=== PATIENT | male | born 2000 | race Two or more races ===

== ENCOUNTER 2025-03-09 10:42 | Outpatient (CLI) | payer MEDICAID, SELFPAY ==
--- NOTE | 2025-03-09 11:30 | ECG_ITS ---
APPROVED REPORT Exam: Resting ECG HR:103 bpm ECG Measurements Heart Rate 103 AXES NM 143 P 65 QRSd 101 QRS 95 QT 310 T -1 QTc 370 Conclusion SINUS TACHYCARDIA POSSIBLE RIGHT ATRIAL ENLARGEMENT [0.25mV P-WAVE] BORDERLINE RIGHT AXIS DEVIATION [QRS AXIS > 90] NONSPECIFIC T-WAVE ABNORMALITY ABNORMAL ECG UNCONFIRMED REPORT Electronically signed by : Walt Washington MD 03/11/2025 08:07:11
[2025-03-09 13:57] VITALS: BMI 41.2
[2025-03-09 14:06] LABS: Hematocrit 47.3 % (42.0-52.0); Hemoglobin 15.6 g/dL (14.1-18.0); Immature Granulocytes % 0.3 %; Mean Corpuscular HGB Conc 33.0 g/dL (31.8-35.4); Mean Corpuscular Hemoglobin 27.8 pg (27.0-31.2); Mean Corpuscular Volume 84.2 fl (80-94); Nucleated Red Blood Cells % 0 %; Platelet Count 221 K/mm3 (142-424); Red Blood Count 5.62 M/mm3 (4.60-6.20); Red Cell Distribution Width-SD 42.7 fL; White Blood Count 6.4 K/mm3 (4.8-10.8)
[2025-03-09 14:49] LABS: Anion Gap 12.8 mEq/L (5-15); Blood Urea Nitrogen 10 mg/dl (9-20); Calcium 9.4 mg/dl (8.4-10.2); Carbon Dioxide 29 mmol/L (22.0-30.0); Chloride 101 mmol/L (98-107); Creatinine Clearance Estimated 268 mL/min (50-200); Creatinine,Serum 0.90 mg/dl (0.66-1.25); Estimated Glomerular Filt Rate 104 ml/min (>60); GFR (African American) 125 ML/MIN (>60); Glucose 138 mg/dl (74-100); Potassium 3.8 mmoL/L (3.5-5.1); Sodium 139 mmol/L (136-145)
== END 2025-03-09 23:59 | disposition home or self-care (01) ==
LOC: PREOP 10:43
PROVIDERS: Nurse Anesthetist, Certified Registered; PCP Family Medicine; Visit Provider Dentist General Practice
DX: Z01.810 Encounter for preprocedural cardiovascular examination (principal); Z01.812 Encounter for preprocedural laboratory examination; R00.0 Tachycardia, unspecified; R94.31 Abnormal electrocardiogram [ECG] [EKG]
CPT/HCPCS: 80048; 85025; 93005

== ENCOUNTER 2025-03-10 08:31 | Day surgery (SDC) | payer MEDICAID, SELFPAY ==
[2025-03-09 14:00] VITALS: BMI 41.2
[2025-03-10] VITALS (9 sets, daily range): BP systolic 152–176; BP diastolic 88–111; PULSE 91–99; RESP 18–24; TEMP 36.3–36.6; O2SAT 93–99
--- NOTE | 2025-03-10 09:00 | EXP.ANES.CKL ---
[facility] Disclaimer: The information contained in this section may have been updated after the patient was seen, as this information can be updated by other users. Medical History Seizure Surgical History H/O myringotomy History of tonsillectomy and adenoidectomy Family History Other Family history of diabetes mellitus Social History Smoking Status: Former smoker alcohol intake: never substance use type: denies use current occupational status: disabled Travel in the last 8 weeks?: None [facility] Anesthesia Checklist Patient Identification Patient Identification: Arm Band and Family Structural Data Admitted From: Home Planned Operative Procedure/s: Dental cleaning. Consent for Planned Operative Procedure(s) Verified: Yes Verified Documents: Surgical Consent and History and Physical NPO Status Verified Time NPO: 00:00 Additional verifications Anesthesia Reactions: No Hx Blood Transfusions: No Blood Transfusion Reaction: No Cephalosporin Allergy: No Previous Colonoscopy: No Airway Assessment Mallampati Score:: Class III C-Spine Mobility Assessed: Yes TMJ Mobility Assessed: Yes Dentition: Good Dentition Neurological Assessment Level of Consciousness: Awake, Alert, Appropriate and Follows Commands Hx Seizures: Yes Numbness or tingling in extremities: No Anesthesia Plan Anesthesia Plan: Patient unable to respond/answer ASA Class: III Anesthesia Type: General
--- NOTE | 2025-03-10 10:36 | EXP.ANES.I ---
[facility] Anesthesia Record Part I Anesthesia Record I Intake, IV Amount: 750 Hydration: Adequate Estimated blood loss (mL): 0 Urine output (mL): 0 Blood Products used (#): none Blood Pressure: 155/92 SaO2: 98 Pulse Rate: 98 Airway Patency: Patent Respiratory Rate: 24 Temperature: 97.4 F Patient is:: Drowsy and Stable Stable to PACU at:: 10:25
--- NOTE | 2025-03-10 16:03 | P.PCN_ITS ---
Operative Note Date of procedure: 03/10/25 Date of : [birth year] Pre-op Diagnosis:: Autistic. No dental care for over 5 years per mother. Post-op diagnosis:: same Procedure performed:: Full mouth x-rays and oral exam. Full mouth deep scale cleaning with Cavitron. Surgeon:: Vivienne Pierce DMD Ironer(s):: Jer Cosme NUCLEAR PHARMACIST:: Other (Camden Rivera ) Anesthesia: GETA Estimated blood loss (mL): 0 Operative findings:: No decay found Operative note:: 25 year old male transported to the [facility] today for dental care under general anesthesia in the operating room. An I.V. was started in the O.R. pre-holding room . Patient was transported per stretcher to the O.R. He was moved over to the O.R. table. Smooth and non complicated general anesthesia was induced per nasotracheal intubation. One single moist throat pack was placed. Full mouth digital x-rays taken and reviewed today. Patient was found to have no decay. Full mouth SRP cleaning completed with cavitron. Disposition: same day Specimens:: none Complications:: none
[2025-03-11 07:42] VITALS: BP 165/98; PULSE 92; RESP 18; TEMP 36.3; O2SAT 99
--- NOTE | 2025-03-11 07:42 | P.PNANES_ITS ---
[facility] Anesthesia Record Part II Anesthesia Record Part II Discharge Time: 11:30 Destination: Surgical Day Care (OP Surgery) PACU nurse assessment reviewed?: Yes Patient Condition:: Good Anesthesia Complications:: None Swallowing reflex intact?: Yes Airway Patency: Patent Cyanosis?: No Blood Pressure: 165/98 SaO2: 99 Respiratory Rate: 18 Pulse Rate: 92 Temperature: 97.4 F Mental Status: Alert & Oriented Pain level:: 0 Nausea and/or vomitting:: None Intake, IV Amount: 0 Hydration: Adequate
== END 2025-03-10 11:39 | disposition home or self-care (01) ==
PROVIDERS: PCP Family Medicine; Visit Provider Dentist General Practice
PROC: (CPT D0150; principal; 2025-03-10 09:15)
DX: F84.0 Autistic disorder (principal); Z87.891 Personal history of nicotine dependence
CPT/HCPCS: D0150; D0210; J1100; J2003; J2250; J2405; J2704; J3010